=== PATIENT | female | born 1955 | race Caucasian/White ===

== ENCOUNTER 2019-01-07 09:35 | Day surgery (SDC) | payer OTHER ==
[~2019-01-07] VITALS: Ht 162.6 cm; Wt 76.0 kg
[~2019-01-07 09:35] MED LIST: CITA-100 PO; HYDR-1666 PO; HYDR25TA6 PO; LISI10TA2 PO; MELO15TA30 PO; METH20TA PO; RSV10T PO; SIMV20TA2 PO; TEMA30CA PO; ZOLP10TA5 PO
[2019-01-07 10:20] VITALS: Ht 162.6 cm; Wt 76.0 kg
[2019-01-07 10:30] VITALS: BP 115/69; PULSE 55; RESP 18
[2019-01-07] MEDS ORDERED: MIDAZOLAM 1 MG/ML 2 ML INJ ONE ×2 (11:00)
[2019-01-07] MEDS ORDERED: FENTAnyl 50 MCG/ML VIAL ONE (11:01)
[2019-01-07 11:30] VITALS: BP 92/56; RESP 20
== END 2019-01-07 16:00 | disposition home or self-care (01) ==
LOC: GIL 09:35
PROVIDERS: ATTEND Internal Medicine Gastroenterology
DX: Z12.11 Encounter for screening for malignant neoplasm of colon (principal); K64.8 Other hemorrhoids
CPT/HCPCS: 45378; J2250; J3010